=== PATIENT | female | born 1965 | race Caucasian/White ===

== ENCOUNTER 2018-03-15 10:03 | Emergency (ER) | payer OTHER ==
[~2018-03-15] VITALS: Ht 172.7 cm; Wt 113.4 kg
[2018-03-15] MEDS ORDERED: DICL25ER PO (10:35)
== END 2018-03-15 11:07 | disposition home or self-care (01) ==
LOC: ER 10:03
DX: G89.29 Other chronic pain (principal); M25.562 Pain in left knee; Z88.2 Allergy status to sulfonamides
CPT/HCPCS: 96372; 99283; J1885

== ENCOUNTER 2018-07-06 12:45 | Emergency (ER) | payer OTHER, MEDICARE, BC ==
[~2018-07-06] VITALS: Ht 170.2 cm; Wt 130.2 kg
[~2018-07-06 12:45] MED LIST: DICL25ER PO
[2018-07-06] MEDS ORDERED: Ultram50 MG PO (13:19)
== END 2018-07-06 13:50 | disposition home or self-care (01) ==
LOC: ER 12:45
DX: G89.29 Other chronic pain (principal); M25.562 Pain in left knee; Z88.2 Allergy status to sulfonamides; Z79.899 Other long term (current) drug therapy
CPT/HCPCS: 96372; 99282; J1885

== ENCOUNTER → 2018-12-15 | Outpatient (CLI) | payer MEDICARE, OTHER ==
[~2018-12-15] MED LIST changes: +Ultram50 MG PO
[2018-12-15 13:47] LABS: BASOPHILS ABSOLUTE AUTO 0.02 K/mm3 (0.00-0.23); BASOPHILS PERCENT AUTO 0 % (0-2); EOSINOPHILS ABSOLUTE AUTO 0.11 K/mm3 (0.00-0.68); EOSINOPHILS PERCENT AUTO 2 % (0-6); Hematocrit 38.6 % (33.0-51.0); Hemoglobin 12.8 g/dL (11.5-16.0); IMMATURE GRAN ABSOLUTE AUTO 0.01 K/mm3 (0.00-0.10); IMMATURE GRAN PERCENT AUTO 0 % (0-1); LYMPHOCYTES ABSOLUTE AUTO 1.14 K/mm3 (0.84-5.20); LYMPHOCYTES PERCENT AUTO 22 % (21-46); MONOCYTES ABSOLUTE AUTO 0.43 K/mm3 (0.16-1.47); MONOCYTES PERCENT AUTO 8 % (4-13); Mean Corpuscular HGB 28.6 pg (26.0-34.0); Mean Corpuscular HGB Conc 33.2 g/dL (31.5-36.5); Mean Corpuscular Volume 86 fL (80-100); Mean Platelet Volume 8.7 fL (9.1-12.4); NEUTROPHILS ABSOLUTE AUTO 3.38 K/mm3 (1.96-9.15); NEUTROPHILS PERCENT AUTO 66 % (41-73); Platelet Count 230 K/mm3 (150-400); RDW Standard Deviation 40.7 fL (35.1-46.3); Red Blood Cell Count 4.47 M/mm3 (3.80-5.20); White Blood Cell Count 5.09 K/mm3 (4.00-11.30)
[2018-12-15 14:07] LABS: Alanine Aminotransfer (ALT/SGP 30 U/L (12-78); Albumin, Blood 3.6 g/dL (3.4-5.0); Albumin/Globulin Ratio 0.9 (0.8-1.8); Alk Phos 94 U/L (40-126); Anion Gap 7 mmol/L (6-16); Aspartate Aminotrans (AST/SGOT 22 U/L (12-37); Bilirubin, Total 0.2 mg/dL (0.1-1.0); Blood Urea Nitrogen 14 mg/dL (8-24); Bun/Creatinine Ratio 17.3 (12.0-20.0); CO2, Blood 28 mmol/L (21-32); Calcium, Blood 8.9 mg/dL (8.5-10.1); Chloride, Blood 105 mmol/L (98-108); Creatinine, Blood 0.81 mg/dL (0.40-1.00); Glomerular Filtration Rate >60 (60-); Glucose, Blood 83 mg/dL (70-99); Potassium, Blood 4.4 mmol/L (3.5-5.5); Sodium, Blood 140 mmol/L (136-145); Thyroid Stimulating Hormone 1.924 uIU/mL (0.360-4.800); Total Protein, Blood 7.6 g/dL (6.4-8.2)
[2018-12-15 14:08] LABS: Troponin I <0.015 ng/mL (0.000-0.040)
== END ==
LOC: LAB EV 13:43 → LAB SHORT 13:43
PROVIDERS: Physician Assistant
DX: R00.2 Palpitations (principal); R07.9 Chest pain, unspecified
CPT/HCPCS: 80053; 84443; 84484; 85025

== ENCOUNTER 2019-05-30 15:27 | Emergency (ER) | payer MEDICARE, OTHER ==
[~2019-05-30] VITALS: Ht 170.2 cm; Wt 128.4 kg
[2019-05-30] MEDS ORDERED: Norco 5-325 Ta1 EACH PO (16:46)
[2019-05-30] MEDS ORDERED: ATORVASTATIN CA10 MG (17:06)
== END 2019-05-30 17:13 | disposition home or self-care (01) ==
LOC: ER 15:27
DX: G89.29 Other chronic pain (principal); R60.0 Localized edema; Z88.2 Allergy status to sulfonamides; Z79.899 Other long term (current) drug therapy
CPT/HCPCS: 96372; 99283-25; J1885

== ENCOUNTER 2019-12-28 11:54 | Emergency (ER) | payer OTHER ==
[~2019-12-28] VITALS: Ht 170.2 cm; Wt 136.1 kg
[~2019-12-28 11:54] MED LIST changes: +ATORVASTATIN CA10 MG; +Keflex500 MG PO; +Norco 5-325 Ta1 EACH PO
[2019-12-28] MEDS ORDERED: Citalopram HBr20 MG (13:30)
[2019-12-28] MEDS ORDERED: METOPROLOL SUCC25 MG PO (13:30)
[2019-12-28] MEDS ORDERED: ESTRADIOL1 M1 TOP (13:30)
[2019-12-28] MEDS ORDERED: ATORVASTATIN CA10 M1 PO (13:30)
[2019-12-28] MEDS ORDERED: OMEPRAZOLE CAP 20M (13:31)
[2019-12-28] MEDS ORDERED: HYDR1TAB94 PO (13:32)
[2019-12-28] MEDS ORDERED: Voltaren100 GM TOP (13:33)
== END 2019-12-28 14:11 | disposition home or self-care (01) ==
LOC: ER 11:54
DX: M25.562 Pain in left knee (principal); Z88.2 Allergy status to sulfonamides
CPT/HCPCS: 73562-LT; 99283-25; J1885

== ENCOUNTER 2020-02-16 15:22 | Emergency (ER) | payer OTHER ==
[~2020-02-16] VITALS: Ht 170.2 cm; Wt 136.1 kg
[~2020-02-16 15:22] MED LIST changes: +ATORVASTATIN CA10 M1 PO; +Citalopram HBr20 MG; +ESTRADIOL1 M1 TOP; +HYDR1TAB94 PO; +METOPROLOL SUCC25 MG PO; +OMEPRAZOLE CAP 20M; +Voltaren100 GM TOP
[2020-02-16] MEDS ORDERED: Aspir 8181 MG PO (15:40)
[2020-02-16 16:00] LABS: BASOPHILS ABSOLUTE AUTO 0.03 K/mm3 (0.00-0.23); BASOPHILS PERCENT AUTO 1 % (0-2); EOSINOPHILS ABSOLUTE AUTO 0.16 K/mm3 (0.00-0.68); EOSINOPHILS PERCENT AUTO 3 % (0-6); Hematocrit 41.9 % (33.0-51.0); Hemoglobin 13.5 g/dL (11.5-16.0); IMMATURE GRAN ABSOLUTE AUTO 0.01 K/mm3 (0.00-0.10); IMMATURE GRAN PERCENT AUTO 0 % (0-1); LYMPHOCYTES ABSOLUTE AUTO 1.24 K/mm3 (0.84-5.20); LYMPHOCYTES PERCENT AUTO 26 % (21-46); MONOCYTES ABSOLUTE AUTO 0.45 K/mm3 (0.16-1.47); MONOCYTES PERCENT AUTO 9 % (4-13); Mean Corpuscular HGB 27.9 pg (26.0-34.0); Mean Corpuscular HGB Conc 32.2 g/dL (31.5-36.5); Mean Corpuscular Volume 87 fL (80-100); Mean Platelet Volume 8.9 fL (9.1-12.4); NEUTROPHILS ABSOLUTE AUTO 2.92 K/mm3 (1.96-9.15); NEUTROPHILS PERCENT AUTO 61 % (41-73); Platelet Count 215 K/mm3 (150-400); RDW Coefficient Variation 12.7 % (11.7-14.2); Red Blood Cell Count 4.84 M/mm3 (3.80-5.20); White Blood Cell Count 4.81 K/mm3 (4.00-11.30)
[2020-02-16 16:36] LABS: Alanine Aminotransfer (ALT/SGP 38 U/L (12-78); Alk Phos 83 U/L (50-136); Anion Gap 5 mmol/L (6-16); Aspartate Aminotrans (AST/SGOT 30 U/L (12-37); Bilirubin, Total 0.4 mg/dL (0.1-1.0); Blood Urea Nitrogen 14 mg/dL (8-24); Bun/Creatinine Ratio 19.6 (12.0-20.0); CO2, Blood 23 mmol/L (21-32); Calcium, Blood 8.9 mg/dL (8.5-10.1); Chloride, Blood 109 mmol/L (98-108); Creatinine, Blood 0.71 mg/dL (0.40-1.00); Globulin, Blood 3.9 g/dL (2.2-4.0); Glomerular Filtration Rate >60 (60-); Glucose, Blood 86 mg/dL (70-99); Potassium, Blood 4.1 mmol/L (3.5-5.5); Sodium, Blood 137 mmol/L (136-145); Total Protein, Blood 7.9 g/dL (6.4-8.2)
== END 2020-02-16 16:56 | disposition home or self-care (01) ==
LOC: ER 15:22
PROVIDERS: Nurse Practitioner
DX: J40 Bronchitis, not specified as acute or chronic (principal); Z88.2 Allergy status to sulfonamides; Z79.82 Long term (current) use of aspirin
CPT/HCPCS: 36415; 71045; 80053; 85025; 99283-25

== ENCOUNTER → 2020-07-14 | Outpatient (CLI) | payer OTHER ==
[~2020-07-14] MED LIST changes: +Aspir 8181 MG PO
== END | disposition home or self-care (01) ==
LOC: LAB SHORT 13:04 → LAB EV 13:04
DX: R53.83 Other fatigue (principal)
CPT/HCPCS: 84443

== ENCOUNTER 2024-07-10 08:48 | Day surgery (SDC) | payer OTHER ==
[~2024-07-10] VITALS: Ht 167.6 cm; Wt 121.3 kg
[2024-07-10] VITALS (12 sets, daily range): BP systolic 110–129; BP diastolic 55–73
[~2024-07-10 08:48] MED LIST changes: +ATOR10 PO; +CITA20 PO; +GABA100 PO; +LOSA50 PO; +OMEP20ER PO; +TRULICITY1.5 MG/0.1 SC
[2024-07-10] MEDS ORDERED: OxyCODONE HCL 10 MG TABCR PO SCH (08:55)
[2024-07-10] MEDS ORDERED: Chlorhexidine Mouth Care 15 ML UDC MT SCH (08:55)
[2024-07-10] MEDS ORDERED: Ropivacaine 0.5% HCl/Pf 123.125 MG,EPINEPHrine HCL 0.25 MG,Ketorolac Tromethamine 15 MG... INFIL SCH (08:55)
[2024-07-10] MEDS ORDERED: CeFAZolin Sodium 3,000 MG in NS 100 ML IV SCH ×2 (08:55→20:00)
[2024-07-10] MEDS ORDERED: Lactated Ringer's 1,000 ML IV SCH ×2 (08:55→09:40)
[2024-07-10] MEDS ORDERED: Tranexamic Acid 100 ML IV SCH (08:55)
[2024-07-10] MEDS ORDERED: Acetaminophen 500 MG Tab PO SCH ×2 (08:55→16:00)
[2024-07-10] MEDS ORDERED: ESTRADIOL PO (09:26)
--- NOTE | 2024-07-10 09:27 | NUR ---
Ambulatory in Day SurgeryPre-Op teaching done. Pt verbalizes understanding. History, Chart, Medications and Allergies reviewed before start of procedure.Patient confirms NPO status and agrees with scheduled surgery.
[2024-07-10] MEDS ORDERED: Ondansetron HCl 2 MG / ML 2ML Vial IV PRN (09:35)
[2024-07-10] MEDS ORDERED: Magnesium Hydroxide Conc 10 ML UDC PO PRN (09:40)
[2024-07-10] MEDS ORDERED: Promethazine HCl 25 MG Tab PO PRN (09:40)
[2024-07-10] MEDS ORDERED: Metoclopramide HCl 5MG / ML 2ML Vial IV PRN (09:40)
[2024-07-10] MEDS ORDERED: OxyCODONE HCL 5 MG TAB PO PRN ×2 (09:40)
[2024-07-10] MEDS ORDERED: DiphenhydrAMINE HCL 25 MG Cap PO PRN (09:45)
[2024-07-10] MEDS ORDERED: HYDROmorphone HCl/Pf 1MG SYR IV PRN (09:45)
[2024-07-10] MEDS ORDERED: Bisacodyl 10 MG Supp PR PRN (09:45)
[2024-07-10] MEDS ORDERED: propofoL 60 ML IV ONE (10:34)
[2024-07-10] MEDS ORDERED: FentaNYL Citrate 50 MCG/ML 2 ML Injection ONE (10:34)
[2024-07-10] MEDS ORDERED: ePHEDrine Sulfate 50 MG/ML 1ML Injection ONE (11:36)
[2024-07-10] MEDS ORDERED: Dexamethasone Sod Phos 10 MG/ML 1ML VIAL ONE (11:51)
[2024-07-10] MEDS ORDERED: Ondansetron HCl 2 MG / ML 2ML Vial ONE (11:51)
[2024-07-10] MEDS ORDERED: Phenylephrine HCl 100 MCG/ML-NS 10MLSYR (1MG/10ML) ONE (11:51)
[2024-07-10] MEDS ORDERED: Glycopyrrolate 0.2 MG/ML 5ML VIAL ONE (11:51)
[2024-07-10] MEDS ORDERED: Ketorolac Tromethamine 15mg Vial IV SCH (12:00)
[2024-07-10] MEDS ORDERED: propofoL 40 ML IV ONE (13:16)
--- NOTE | 2024-07-10 17:46 | NUR ---
SHIFT SUMMARY S/P LTKA PT HAS BEEN UP AND AMBULATING TO RESTROOM, SHE REPORTS FULL SENSATION. PAIN CONTROLLED PER EMAR. PT VOIDING. PT HAS NOT WORKED WITH THERAPY. PLAN WILL BE TO WORK WITH THERAPY TOMORROW AND PATIENT WILL DISCHARGE HOME.
[2024-07-10] MEDS ORDERED: Docusate Sodium 100 MG Cap PO SCH (21:00)
[2024-07-11 04:25] VITALS: BP 141/70
[2024-07-11] MEDS ORDERED: NS 100 ML IV ONE (04:52)
[2024-07-11] MEDS ORDERED: CeFAZolin Sodium 1000 mg Vial ONE (04:52)
[2024-07-11 04:56] LABS: BASOPHILS ABSOLUTE AUTO 0.01 K/mm3 (0.00-0.23); BASOPHILS PERCENT AUTO 0 % (0-2); EOSINOPHILS PERCENT AUTO 0 % (0-6); Hematocrit 35.6 % (33.0-51.0); Hemoglobin 11.6 g/dL (11.5-16.0); IMMATURE GRAN ABSOLUTE AUTO 0.03 K/mm3 (0.00-0.10); IMMATURE GRAN PERCENT AUTO 0 % (0-1); LYMPHOCYTES ABSOLUTE AUTO 0.58 K/mm3 (0.84-5.20); LYMPHOCYTES PERCENT AUTO 6 % (21-46); MONOCYTES ABSOLUTE AUTO 0.19 K/mm3 (0.16-1.47); MONOCYTES PERCENT AUTO 2 % (4-13); Mean Corpuscular HGB 29.1 pg (26.0-34.0); Mean Corpuscular HGB Conc 32.6 g/dL (31.5-36.5); Mean Corpuscular Volume 89 fL (80-100); Mean Platelet Volume 9.1 fL (9.1-12.4); NEUTROPHILS ABSOLUTE AUTO 8.68 K/mm3 (1.96-9.15); NEUTROPHILS PERCENT AUTO 92 % (41-73); Platelet Count 204 K/mm3 (150-400); RDW Coefficient Variation 12.6 % (11.7-14.2); RDW Standard Deviation 41.4 fL (35.1-46.3); Red Blood Cell Count 3.99 M/mm3 (3.80-5.20); White Blood Cell Count 9.49 K/mm3 (4.00-11.30)
[2024-07-11 05:40] LABS: Calcium, Blood 8.5 mg/dL (8.5-10.1); Creatinine, Blood 0.8 mg/dL (0.40-1.00); Potassium, Blood 4.8 mmol/L (3.5-5.5)
--- NOTE | 2024-07-11 05:58 | NUR ---
SUMMARY- PT PAIN MANGED WELL. PT HAS [place] AMBULATING TO RESTROOM WITH GB AND FWW. PT VOIDING. PT DENIES N/T. PT UP AND DRESSED IN CHAIR THIS AM. DRESSING C/D/I. CALL LIGHT IN REACH.
[2024-07-11] MEDS ORDERED: Omeprazole 20 MG CapCR PO SCH (06:00)
[2024-07-11 07:20] VITALS: BP 94/55
[2024-07-11] MEDS ORDERED: ELIQUIS2.5 MG PO (08:24)
[2024-07-11] MEDS ORDERED: Gabapentin 100 MG Cap PO SCH (09:00)
[2024-07-11] MEDS ORDERED: Losartan Potassium 50 MG Tab PO SCH (09:00)
[2024-07-11] MEDS ORDERED: Atorvastatin 10 MG Tab PO SCH (09:00)
[2024-07-11] MEDS ORDERED: Apixaban 5 MG Tab PO SCH (09:00)
[2024-07-11] MEDS ORDERED: Misc. Injectable SC SCH (09:00)
[2024-07-11] MEDS ORDERED: Citalopram Hydrobromide 20 MG Tab PO SCH (09:00)
[2024-07-11 10:27] VITALS: BP 111/57
--- NOTE | 2024-07-11 11:17 | NUR ---
DISCHARGED PT CLEARED THERAPY. PAIN CONTROLLED WITH PO PAIN MEDS. VOIDING W/O DIFFICULTY. IV DC'D. VSS. REVIEWED DC INSTRUCTIONS W/PT; VERBALIZED UNDERSTANDING. PROVIDED AQUACEL DRESSING CHANGES. PT LEFT UNIT IN WC. PT'S FAMILY HAD POSSESSIONS, DC PAPERWORK, AQUACEL AND POLAR PACK IN HAND UPON DEPARTURE.
== END 2024-07-11 11:05 | disposition home or self-care (01) ==
LOC: ORSCMMR 08:48 → ORD 10:00 → SURS 14:30 → ORSCMMR 23:23
PROVIDERS: Orthopaedic Surgery
DX: M17.12 Unilateral primary osteoarthritis, left knee (principal); I10 Essential (primary) hypertension; E78.5 Hyperlipidemia, unspecified; F41.9 Anxiety disorder, unspecified; F32.A Depression, unspecified; E66.01 Morbid (severe) obesity due to excess calories; Z68.41 Body mass index [BMI] 40.0-44.9, adult; K21.9 Gastro-esophageal reflux disease without esophagitis; Z79.899 Other long term (current) drug therapy
CPT/HCPCS: 36415; 73560-LT; 80048; 85025; 97110; 97116; 97161; 97530; A9270; C1713; C1776; J0171; J0690; J0735; J1100; J1170; J1885; J2371; J2405; J2704; J2795; J3010; J7120

== ENCOUNTER 2025-05-15 10:47 | Day surgery (SDC) | payer OTHER ==
[~2025-05-15] VITALS: Ht 170.2 cm; Wt 123.2 kg
[~2025-05-15 10:47] MED LIST changes: +ELIQUIS2.5 MG PO; +ESTRADIOL PO; +Lactated Ringer's 1,000 ML IV ONE
[2025-05-15] MEDS ORDERED: propofoL 60 ML IV ONE (11:48)
[2025-05-15] MEDS ORDERED: Lidocaine HCl 4% 5 ML SDA ONE (11:48)
[2025-05-15] MEDS ORDERED: Lactated Ringer's 1,000 ML IV ONE (12:56)
[2025-05-15] MEDS ORDERED: Lidocaine HCl 2% Jelly 120MG/6ML SYR (20MG PER ML) ONE (13:15)
[2025-05-15 13:57] VITALS: BP 101/64
== END 2025-05-15 14:10 | disposition home or self-care (01) ==
LOC: ORSCSDS 10:47
PROVIDERS: Specialist
PROC: 0DJ08ZZ Inspection of Upper Intestinal Tract, Via Natural or Artificial Opening Endoscopic (ICD-10-PCS; principal; 2025-05-15 12:00)
PROC: 0DBL8ZX Excision of Transverse Colon, Via Natural or Artificial Opening Endoscopic, Diagnostic (ICD-10-PCS; principal; 2025-05-15 12:00)
DX: Z12.11 Encounter for screening for malignant neoplasm of colon (principal); Z86.0100 Personal history of colon polyps, unspecified; K21.9 Gastro-esophageal reflux disease without esophagitis; K63.5 Polyp of colon; K64.8 Other hemorrhoids; K57.30 Diverticulosis of large intestine without perforation or abscess without bleeding; I10 Essential (primary) hypertension; E78.5 Hyperlipidemia, unspecified; I42.2 Other hypertrophic cardiomyopathy; E66.01 Morbid (severe) obesity due to excess calories; Z68.41 Body mass index [BMI] 40.0-44.9, adult; Z79.899 Other long term (current) drug therapy
CPT/HCPCS: 88305; A9270; J2003; J2704; J7120

== ENCOUNTER → 2025-06-14 | Outpatient (CLI) | payer OTHER ==
[~2025-06-14] MED LIST changes: -Lactated Ringer's 1,000 ML IV ONE
[2025-06-14 18:46] LABS: BASOPHILS ABSOLUTE AUTO 0.02 K/mm3 (0.00-0.23); BASOPHILS PERCENT AUTO 0 % (0-2); EOSINOPHILS ABSOLUTE AUTO 0.20 K/mm3 (0.00-0.68); EOSINOPHILS PERCENT AUTO 4 % (0-6); Hematocrit 37.9 % (33.0-51.0); Hemoglobin 12.6 g/dL (11.5-16.0); IMMATURE GRAN ABSOLUTE AUTO 0.01 K/mm3 (0.00-0.10); IMMATURE GRAN PERCENT AUTO 0 % (0-1); LYMPHOCYTES ABSOLUTE AUTO 1.24 K/mm3 (0.84-5.20); LYMPHOCYTES PERCENT AUTO 23 % (21-46); MONOCYTES ABSOLUTE AUTO 0.46 K/mm3 (0.16-1.47); MONOCYTES PERCENT AUTO 8 % (4-13); Mean Corpuscular HGB Conc 33.2 g/dL (31.5-36.5); Mean Corpuscular Volume 86 fL (80-100); NEUTROPHILS ABSOLUTE AUTO 3.58 K/mm3 (1.96-9.15); NEUTROPHILS PERCENT AUTO 65 % (41-73); NRBC ABSOLUTE 0.00 K/mm3 (0.00-0.02); NRBC Auto 0.0 /100 WBC (0.0-0.2); Platelet Count 210 K/mm3 (150-400); RDW Coefficient Variation 12.7 % (11.7-14.2); RDW Standard Deviation 39.8 fL (35.1-46.3)
[2025-06-14 18:56] LABS: Alanine Aminotransfer (ALT/SGP 22.0 U/L (12-78); Albumin, Blood 3.8 g/dL (3.4-5.0); Albumin/Globulin Ratio 1.1 (0.8-1.8); Anion Gap 10.0 mmol/L (3-11); Aspartate Aminotrans (AST/SGOT 14.0 U/L (12-37); Bilirubin, Total 0.3 mg/dL (0.1-1.0); Blood Urea Nitrogen 17.0 mg/dL (8-24); CO2, Blood 29.0 mmol/L (21-32); Calcium, Blood 9.2 mg/dL (8.5-10.1); Chloride, Blood 106.0 mmol/L (98-108); Creatinine, Blood 0.88 mg/dL (0.40-1.00); Globulin, Blood 3.4 g/dL (2.2-4.0); Glucose, Blood 108.0 mg/dL (70-99); Potassium, Blood 3.8 mmol/L (3.5-5.5); Sodium, Blood 141.0 mmol/L (136-145); Total Protein, Blood 7.2 g/dL (6.4-8.2)
== END ==
LOC: LAB 18:41 → LAB SHORT 18:41
PROVIDERS: Emergency Medicine
DX: R07.9 Chest pain, unspecified (principal)
CPT/HCPCS: 80053; 83690; 83880; 84484; 85025

== ENCOUNTER 2025-06-26 13:37 | Emergency (ER) | payer OTHER ==
[~2025-06-26] VITALS: Ht 170.2 cm; Wt 127.0 kg
[2025-06-26] MEDS ORDERED: Ondansetron HCl 2 MG / ML 2ML Vial IV PRN (14:00)
[2025-06-26 14:27] LABS: BASOPHILS ABSOLUTE AUTO 0.03 K/mm3 (0.00-0.23); BASOPHILS PERCENT AUTO 0 % (0-2); EOSINOPHILS ABSOLUTE AUTO 0.18 K/mm3 (0.00-0.68); EOSINOPHILS PERCENT AUTO 3 % (0-6); Hematocrit 39.5 % (33.0-51.0); Hemoglobin 13.1 g/dL (11.5-16.0); IMMATURE GRAN ABSOLUTE AUTO 0.01 K/mm3 (0.00-0.10); IMMATURE GRAN PERCENT AUTO 0 % (0-1); LYMPHOCYTES ABSOLUTE AUTO 1.47 K/mm3 (0.84-5.20); LYMPHOCYTES PERCENT AUTO 22 % (21-46); MONOCYTES ABSOLUTE AUTO 0.43 K/mm3 (0.16-1.47); MONOCYTES PERCENT AUTO 6 % (4-13); Mean Corpuscular HGB Conc 33.2 g/dL (31.5-36.5); Mean Corpuscular Volume 88 fL (80-100); NEUTROPHILS ABSOLUTE AUTO 4.66 K/mm3 (1.96-9.15); NEUTROPHILS PERCENT AUTO 69 % (41-73); NRBC ABSOLUTE 0.00 K/mm3 (0.00-0.02); NRBC Auto 0.0 /100 WBC (0.0-0.2); Platelet Count 242 K/mm3 (150-400); RDW Coefficient Variation 12.8 % (11.7-14.2); RDW Standard Deviation 40.8 fL (35.1-46.3)
[2025-06-26] MEDS ORDERED: Orphenadrine C100 MG (14:36)
[2025-06-26] MEDS ORDERED: NS 1,000 ML IV SCH (14:45)
[2025-06-26] MEDS ORDERED: Ondansetron HCl 2 MG / ML 2ML Vial IV ONE (14:45)
[2025-06-26] MEDS ORDERED: Morphine Sulfate 4 MG/1 ML Injection IV ONE (14:45)
[2025-06-26 15:45] LABS: Alanine Aminotransfer (ALT/SGP 106.0 U/L (12-78); Albumin, Blood 3.7 g/dL (3.4-5.0); Albumin/Globulin Ratio 1.1 (0.8-1.8); Anion Gap 4.0 mmol/L (3-11); Aspartate Aminotrans (AST/SGOT 135.0 U/L (12-37); Bilirubin, Total 1.0 mg/dL (0.1-1.0); Blood Urea Nitrogen 11.0 mg/dL (8-24); CO2, Blood 24.0 mmol/L (21-32); Calcium, Blood 8.8 mg/dL (8.5-10.1); Chloride, Blood 108.0 mmol/L (98-108); Creatinine, Blood 0.79 mg/dL (0.40-1.00); Globulin, Blood 3.5 g/dL (2.2-4.0); Glucose, Blood 121.0 mg/dL (70-99); Potassium, Blood 3.8 mmol/L (3.5-5.5); Sodium, Blood 132.0 mmol/L (136-145); Total Protein, Blood 7.2 g/dL (6.4-8.2)
[2025-06-26] MEDS ORDERED: ONDA4ODT MM (16:13)
[2025-06-26] MEDS ORDERED: NIFE10 PO (16:13)
[2025-06-26 17:14] VITALS: BP 128/78
== END 2025-06-26 17:27 | disposition home or self-care (01) ==
LOC: ER 13:37
PROVIDERS: Emergency Medicine; Physician Assistant
DX: K22.4 Dyskinesia of esophagus (principal); I10 Essential (primary) hypertension; E78.5 Hyperlipidemia, unspecified; Z88.2 Allergy status to sulfonamides; Z88.8 Allergy status to other drugs, medicaments and biological substances; Z88.7 Allergy status to serum and vaccine; Z79.899 Other long term (current) drug therapy
CPT/HCPCS: 71046; 74177; 80053; 83690; 84484; 85025; 93005; 93010; 96374-59; 96375; 99285-25; J2270; J2405; J7030; Q9967